=== PATIENT | male | born 1950 | race Caucasian/White ===

== ENCOUNTER 2019-04-24 11:23 | Inpatient (IN) | payer MEDICARE ==
[~2019-04-24] VITALS: Ht 175.3 cm; Wt 108.9 kg
[~2019-04-24 11:23] MED LIST: ALFU10TA PO; ASPI-650 PO; ASPI325T17 PO; ASPI325T80 PO; ATOR40TA78 PO; CELE200C PO; HYDR1TAB14 PO; ISOS20TA3 PO; METO200T47 PO; NITR0.4T41 SL; OMEP20TA62 PO; SODIUM CHLORIDE 0.9% 1,000 ML IV SCH
--- NOTE | 2019-04-24 11:29 | NUR ---
PT JAQUELIN ASH, BROUGHT FROM [place]. PT STATES " I WAS SHORT OF BREATH AND UP ALL NIGHT BECAUSE OF MY LACK OF BREATHING". PT TO SIL, FINISH MOLDER, NIBP, CONT PULSE OX APPLIED. PT DENIES CP, SOB RELIVED VIA 4L NC. NO C/O N/V. MD SALES AT BEDSIDE, EKG DONE. NO EVIDENCE OF DISTRESS AT THIS TIME
[2019-04-24 12:30] LABS: TROPONIN I 0.147 ng/mL (0.000-0.045)
--- NOTE | 2019-04-24 12:46 | NUR ---
PT RESTING IN GURNEY, NO C/O OF PAIN. NO EVIDENCE OF DISTRESS, TROP LEVEL CAME BACK 0.147, DR HERNANDEZ AWARE. WILL BEGIN HEPARIN GTT PER PROTOCOL
[2019-04-24] MEDS ORDERED: FINA5TAB4 PO (13:00)
[2019-04-24] MEDS ORDERED: HEPARIN 25,000 UNITS/500ML PMX 500 ML IV PRN (13:00)
[2019-04-24] MEDS ORDERED: HEPARIN 5,000 UNITS/ML, 1ML IV ONE (13:00)
[2019-04-24] MEDS ORDERED: FAMO10TA77 PO (13:00)
[2019-04-24] MEDS ORDERED: HEPARIN 25,000 UNITS/500ML PMX 500 ML ONE (13:02)
[2019-04-24] MEDS ORDERED: HEPARIN 5,000 UNITS/ML, 1ML ONE (13:02)
--- NOTE | 2019-04-24 13:36 | NUR ---
PT RESTING ON GURNEY. PT GIVEN WARM BLANKET. PLUGGER BEDSIDE. FAMILY BEDSIDE. NO NEEDS REQUESTED AT THIS TIME.
--- NOTE | 2019-04-24 14:38 | NUR ---
PT RESTING ON GURNEY, AT BEDSIDE. PT CONTINUES TO DENY PAIN. NO EVIDENCE OF DISTRESS, WILL CONTINUE TO MONITOR.
--- NOTE | 2019-04-24 15:36 | NUR ---
PT RESTING ON GURNEY. NO ACUTE DISTRESS NOTED. FAMILY BEDSIDE. NO NEEDS REQUESTED AT THIS TIME.
--- NOTE | 2019-04-24 16:11 | NUR ---
REPORT CALLED TO [facility]. AWAITING TRANSPORT.
--- NOTE | 2019-04-24 16:29 | NUR ---
PT TRANSFERRED TO FLOOR. PT LEFT WITH ALL PERSONAL BELONGINGS.
[2019-04-24 16:39] VITALS: BP 120/77
[2019-04-24] MEDS ORDERED: PROMETHAZINE 25 MG/ML, 1ML IM PRN (17:30)
[2019-04-24] MEDS ORDERED: ONDANSETRON 2MG/ML, 2ML IVPush PRN (17:30)
[2019-04-24] MEDS ORDERED: ONDANSETRON ODT 4 MG PO PRN (17:30)
[2019-04-24] MEDS ORDERED: BISACODYL 10 MG SUPP PR PRN (17:30)
[2019-04-24] MEDS ORDERED: hydrALAzine 20 MG/ML, 1ML IVPush PRN (17:30)
[2019-04-24] MEDS ORDERED: DOCUSATE 100 MG CAPSULE PO PRN (17:30)
[2019-04-24] MEDS ORDERED: POLYETHYLENE GLYCOL 17 GM PACKET PO PRN (17:30)
[2019-04-24] MEDS ORDERED: morphine SULFATE 10 MG/ML, 1ML IVPush PRN (17:30)
[2019-04-24 18:19] LABS: FREE T4 (FREE THYROXINE) 1.33 ng/dL (0.76-1.46); THYROID STIMULATING HORMONE 1.14 mIU/L (0.358-3.740)
[2019-04-24 19:58] VITALS: BP 118/78
[2019-04-24] MEDS: ATORVASTATIN 80 MG TABLET PO SCH (21:15)
[2019-04-24] MEDS: HEPARIN 5,000 UNITS/ML, 1ML IV PRN (21:26)
[2019-04-24 21:54] LABS: CULTURE INDICATED? YES; MICROSCOPIC INDICATED
[2019-04-25 01:19] VITALS: BP 123/77
[2019-04-25 03:32] LABS: BASOPHILS # (AUTO) 0.02 x10^3/uL (0-0.1); BASOPHILS % (AUTO) 0 % (0-1); EOSINOPHILS # (AUTO) 0.16 x10^3/uL (0-0.4); EOSINOPHILS % (AUTO) 2 % (1-7); LYMPHOCYTES # (AUTO) 1.45 x10^3/uL (1-3.4); LYMPHOCYTES % (AUTO) 20 % (22-44); MD NO; MEAN CORPUSCULAR VOLUME 90.9 fL (81-97); MEAN PLATELET VOLUME 7.7 fL (7.4-10.4); MONOCYTES # (AUTO) 0.51 x10^3/uL (0.2-0.8); MONOCYTES % (AUTO) 7 % (2-9); NEUTROPHILS # (AUTO) 5.01 x10^3/uL (1.8-6.8); NEUTROPHILS % (AUTO) 70 % (42-75); PLATELET COUNT 273 x10^3/uL (130-400); RED BLOOD COUNT 4.93 x10^6/uL (4.38-5.82); RED CELL DISTRIBUTION WIDTH 12.8 % (9.4-14.8)
[2019-04-25 03:37] LABS: ALBUMIN 2.7 g/dL (3.4-5.0); ANION GAP 8 mmol/L (5-15); CALCIUM 8.3 mg/dL (8.5-10.1); CHLORIDE 111 mmol/L (98-107)
[2019-04-25 03:40] LABS: ALANINE AMINOTRANSFERASE 40 U/L (12-78); ALKALINE PHOSPHATASE 107 U/L (45-117); BILIRUBIN,TOTAL 0.6 mg/dL (0.2-1.0); CREATININE 1.25 mg/dL (0.7-1.3); TOTAL PROTEIN 6.6 g/dL (6.4-8.2)
[2019-04-25] MEDS: HEPARIN 5,000 UNITS/ML, 1ML IV PRN ×2 (03:47→10:47)
[2019-04-25] MEDS: CEFTRIAXONE PMX 1GM/50ML 50 ML IV SCH (04:15)
[2019-04-25 05:21] VITALS: BP 122/83
[2019-04-25] MEDS: METOPROLOL SUCCINATE 25 MG TAB.ER.24H PO SCH (05:22)
[2019-04-25] MEDS: ASPIRIN 325 MG TABLET PO SCH (05:22)
[2019-04-25 07:00] VITALS: BP 133/90
[2019-04-25] MEDS: ISOSORBIDE MONONITRATE 20 MG TABLET PO SCH (08:30)
[2019-04-25] MEDS: FINASTERIDE 5 MG TABLET PO SCH (08:30)
[2019-04-25] MEDS: FAMOTIDINE 20 MG TABLET PO SCH (08:30)
[2019-04-25] MEDS: TEMPLATE NON-FORMULARY MED. (Alfuzosin Hcl** (Uroxatral**) 10 MG) PO SCH (08:32)
[2019-04-25] MEDS ORDERED: MIDAZOLAM 1 MG/ML, 5ML ONE (11:32)
[2019-04-25] MEDS ORDERED: LIDOCAINE 1%, 20ML ONE (11:32)
[2019-04-25] MEDS ORDERED: FENTANYL PF 100 MCG/2ML ONE (11:32)
[2019-04-25] MEDS ORDERED: BIVALIRUDIN 250 MG ONE (11:32)
[2019-04-25] MEDS ORDERED: SODIUM CHLORIDE 0.9% 1,000 ML IV SCH (12:13)
[2019-04-25 12:29] VITALS: BP 113/70
[2019-04-25] MEDS: ATORVASTATIN 80 MG TABLET PO SCH (20:01)
[2019-04-25 21:27] VITALS: BP 134/78
[2019-04-26 02:20] VITALS: BP 126/77
[2019-04-26] MEDS: CEFTRIAXONE PMX 1GM/50ML 50 ML IV SCH (04:46)
[2019-04-26 05:32] LABS: BASOPHILS # (AUTO) 0.03 x10^3/uL (0-0.1); BASOPHILS % (AUTO) 0 % (0-1); EOSINOPHILS # (AUTO) 0.16 x10^3/uL (0-0.4); EOSINOPHILS % (AUTO) 2 % (1-7); LYMPHOCYTES # (AUTO) 1.43 x10^3/uL (1-3.4); LYMPHOCYTES % (AUTO) 19 % (22-44); MD NO; MEAN CORPUSCULAR HEMOGLOBIN 29.6 pg (27.5-34.5); MEAN CORPUSCULAR HGB CONC 32.4 g/dL (33.2-36.2); MEAN CORPUSCULAR VOLUME 91.1 fL (81-97); MEAN PLATELET VOLUME 7.3 fL (7.4-10.4); MONOCYTES # (AUTO) 0.64 x10^3/uL (0.2-0.8); MONOCYTES % (AUTO) 8 % (2-9); NEUTROPHILS % (AUTO) 70 % (42-75); PLATELET COUNT 258 x10^3/uL (130-400); RED BLOOD COUNT 4.84 x10^6/uL (4.38-5.82); RED CELL DISTRIBUTION WIDTH 12.4 % (9.4-14.8)
[2019-04-26 05:36] VITALS: BP 105/62
[2019-04-26] MEDS: METOPROLOL SUCCINATE 25 MG TAB.ER.24H PO SCH (05:37)
[2019-04-26] MEDS: ASPIRIN 325 MG TABLET PO SCH (05:37)
[2019-04-26 05:43] LABS: ANION GAP 5 mmol/L (5-15); CALCIUM 8.3 mg/dL (8.5-10.1); CHLORIDE 108 mmol/L (98-107)
[2019-04-26 05:51] LABS: CREATININE 1.35 mg/dL (0.7-1.3)
[2019-04-26 07:05] VITALS: BP 126/82
[2019-04-26] MEDS: FINASTERIDE 5 MG TABLET PO SCH (08:30)
[2019-04-26] MEDS: FAMOTIDINE 20 MG TABLET PO SCH (08:31)
[2019-04-26] MEDS: ISOSORBIDE MONONITRATE 20 MG TABLET PO SCH (08:31)
[2019-04-26] MEDS: TEMPLATE NON-FORMULARY MED. (Alfuzosin Hcl** (Uroxatral**) 10 MG) PO SCH (08:35)
[2019-04-26] MEDS ORDERED: SODIUM CHLORIDE 0.9% 1,000ML IVBOLUS ONE (11:30)
[2019-04-26 15:45] VITALS: BP 112/75
[2019-04-26] MEDS ORDERED: OMNIPAQUE 350 MG/ML, 100ML BOTTLE ONE (16:38)
[2019-04-26] MEDS ORDERED: HEPARIN 25,000 UNITS/500ML PMX 500 ML IV PRN (17:00)
[2019-04-26] MEDS ORDERED: HEPARIN 5,000 UNITS/ML, 1ML IV PRN (17:00)
[2019-04-26] MEDS ORDERED: HEPARIN 5,000 UNITS/ML, 1ML IV ONE (17:00)
[2019-04-26] MEDS ORDERED: FENTANYL PF 100 MCG/2ML ONE (18:11)
[2019-04-26] MEDS ORDERED: LIDOCAINE-MPF 1%, 5ML ONE (18:11)
[2019-04-26] MEDS ORDERED: SODIUM CHLORIDE 0.9% IV ONE ×3 (19:00→22:00)
[2019-04-26] MEDS ORDERED: ALTEPLASE IV ONE ×3 (19:00→22:00)
[2019-04-26] MEDS: ATORVASTATIN 80 MG TABLET PO SCH (21:00)
[2019-04-26] MEDS: ACETAMINOPHEN 325 MG TABLET PO PRN (21:00)
[2019-04-27 04:00] VITALS: BP 151/76
[2019-04-27] MEDS: ACETAMINOPHEN 325 MG TABLET PO PRN (04:37)
[2019-04-27] MEDS: CEFTRIAXONE PMX 1GM/50ML 50 ML IV SCH (05:03)
[2019-04-27] MEDS: ASPIRIN 325 MG TABLET PO SCH (05:09)
[2019-04-27] MEDS: METOPROLOL SUCCINATE 25 MG TAB.ER.24H PO SCH (05:09)
[2019-04-27] MEDS: ALTEPLASE IV PRN ×2 (06:03→12:12)
[2019-04-27] MEDS: SODIUM CHLORIDE 0.9% IV PRN ×2 (06:03→12:12)
[2019-04-27] MEDS: OXYcodone IR 5MG TABLET PO PRN ×4 (07:37→21:52)
[2019-04-27 08:47] LABS: BASOPHILS # (AUTO) 0.02 x10^3/uL (0-0.1); BASOPHILS % (AUTO) 0 % (0-1); EOSINOPHILS % (AUTO) 1 % (1-7); LYMPHOCYTES # (AUTO) 1.07 x10^3/uL (1-3.4); LYMPHOCYTES % (AUTO) 14 % (22-44); MD NO; MEAN CORPUSCULAR HEMOGLOBIN 29.5 pg (27.5-34.5); MEAN CORPUSCULAR HGB CONC 33.1 g/dL (33.2-36.2); MEAN CORPUSCULAR VOLUME 89.1 fL (81-97); MEAN PLATELET VOLUME 7.3 fL (7.4-10.4); MONOCYTES # (AUTO) 0.54 x10^3/uL (0.2-0.8); MONOCYTES % (AUTO) 7 % (2-9); NEUTROPHILS # (AUTO) 6.14 x10^3/uL (1.8-6.8); NEUTROPHILS % (AUTO) 78 % (42-75); PLATELET COUNT 181 x10^3/uL (130-400); RED BLOOD COUNT 5.05 x10^6/uL (4.38-5.82); RED CELL DISTRIBUTION WIDTH 12.8 % (9.4-14.8)
[2019-04-27 08:52] LABS: ALBUMIN 2.7 g/dL (3.4-5.0); ANION GAP 5 mmol/L (5-15); CALCIUM 8.1 mg/dL (8.5-10.1); CHLORIDE 109 mmol/L (98-107)
[2019-04-27 08:59] LABS: ALANINE AMINOTRANSFERASE 42 U/L (12-78); ALKALINE PHOSPHATASE 109 U/L (45-117); BILIRUBIN,TOTAL 0.8 mg/dL (0.2-1.0); CREATINE KINASE, TOTAL 84 U/L (39-308); CREATININE 1.08 mg/dL (0.7-1.3); TOTAL PROTEIN 6.5 g/dL (6.4-8.2)
[2019-04-27] MEDS: TEMPLATE NON-FORMULARY MED. (Alfuzosin Hcl** (Uroxatral**) 10 MG) PO SCH (09:00)
[2019-04-27] MEDS: FAMOTIDINE 20 MG TABLET PO SCH (09:00)
[2019-04-27] MEDS: FINASTERIDE 5 MG TABLET PO SCH (09:00)
[2019-04-27] MEDS: ISOSORBIDE MONONITRATE ER 30 MG TABLET PO SCH (09:00)
[2019-04-27] MEDS ORDERED: OMNIPAQUE 350 MG/ML, 100ML BOTTLE ONE (14:31)
[2019-04-27] MEDS ORDERED: LIDOCAINE-MPF 1%, 5ML ONE (15:33)
[2019-04-27] MEDS ORDERED: FENTANYL PF 100 MCG/2ML ONE (15:44)
[2019-04-27] MEDS ORDERED: VISIPAQUE 320MG/ML, 50ML BOTTLE ONE (16:49)
[2019-04-27] MEDS: ATORVASTATIN 80 MG TABLET PO SCH (21:52)
[2019-04-27] MEDS ORDERED: HEPARIN wt. based STROKE protocol MC SCH (22:30)
[2019-04-27] MEDS ORDERED: HEPARIN 25,000 UNITS/500ML PMX 500 ML IV PRN (22:30)
[2019-04-28 04:00] VITALS: BP 111/71
[2019-04-28] MEDS: CEFTRIAXONE PMX 1GM/50ML 50 ML IV SCH (04:11)
[2019-04-28 05:28] LABS: BASOPHILS # (AUTO) 0.02 x10^3/uL (0-0.1); BASOPHILS % (AUTO) 0 % (0-1); EOSINOPHILS # (AUTO) 0.17 x10^3/uL (0-0.4); EOSINOPHILS % (AUTO) 2 % (1-7); LYMPHOCYTES # (AUTO) 1.37 x10^3/uL (1-3.4); LYMPHOCYTES % (AUTO) 16 % (22-44); MD NO; MEAN CORPUSCULAR HEMOGLOBIN 30.2 pg (27.5-34.5); MEAN CORPUSCULAR HGB CONC 32.8 g/dL (33.2-36.2); MEAN CORPUSCULAR VOLUME 91.9 fL (81-97); MEAN PLATELET VOLUME 8.4 fL (7.4-10.4); MONOCYTES # (AUTO) 0.84 x10^3/uL (0.2-0.8); MONOCYTES % (AUTO) 10 % (2-9); NEUTROPHILS # (AUTO) 6.17 x10^3/uL (1.8-6.8); NEUTROPHILS % (AUTO) 72 % (42-75); PLATELET COUNT 168 x10^3/uL (130-400); RED BLOOD COUNT 4.41 x10^6/uL (4.38-5.82); RED CELL DISTRIBUTION WIDTH 12.9 % (9.4-14.8)
[2019-04-28 05:50] LABS: ALBUMIN 2.6 g/dL (3.4-5.0); ANION GAP 6 mmol/L (5-15); CALCIUM 8.2 mg/dL (8.5-10.1); CHLORIDE 107 mmol/L (98-107)
[2019-04-28] MEDS: ASPIRIN 325 MG TABLET PO SCH (05:52)
[2019-04-28] MEDS: METOPROLOL SUCCINATE 25 MG TAB.ER.24H PO SCH (05:53)
[2019-04-28 05:54] LABS: CREATININE 1.14 mg/dL (0.7-1.3)
[2019-04-28 05:55] LABS: ALANINE AMINOTRANSFERASE 34 U/L (12-78); ALKALINE PHOSPHATASE 100 U/L (45-117); BILIRUBIN,TOTAL 0.6 mg/dL (0.2-1.0); TOTAL PROTEIN 6.2 g/dL (6.4-8.2)
[2019-04-28] MEDS: TEMPLATE NON-FORMULARY MED. (Alfuzosin Hcl** (Uroxatral**) 10 MG) PO SCH (09:00)
[2019-04-28] MEDS: ISOSORBIDE MONONITRATE ER 30 MG TABLET PO SCH (09:50)
[2019-04-28] MEDS: FAMOTIDINE 20 MG TABLET PO SCH (09:50)
[2019-04-28] MEDS: FINASTERIDE 5 MG TABLET PO SCH (09:50)
[2019-04-28] MEDS: OXYcodone IR 5MG TABLET PO PRN (16:34)
[2019-04-28] MEDS: ENOXAPARIN 100 MG/ML SQ SCH (17:46)
[2019-04-28] MEDS: ATORVASTATIN 80 MG TABLET PO SCH (20:34)
[2019-04-29 04:00] VITALS: BP 120/64
[2019-04-29 04:31] LABS: BASOPHILS # (AUTO) 0.02 x10^3/uL (0-0.1); BASOPHILS % (AUTO) 0 % (0-1); EOSINOPHILS # (AUTO) 0.21 x10^3/uL (0-0.4); EOSINOPHILS % (AUTO) 4 % (1-7); LYMPHOCYTES # (AUTO) 1.25 x10^3/uL (1-3.4); LYMPHOCYTES % (AUTO) 21 % (22-44); MD NO; MEAN CORPUSCULAR HEMOGLOBIN 29.5 pg (27.5-34.5); MEAN CORPUSCULAR HGB CONC 32.7 g/dL (33.2-36.2); MEAN CORPUSCULAR VOLUME 90.1 fL (81-97); MEAN PLATELET VOLUME 7.6 fL (7.4-10.4); MONOCYTES # (AUTO) 0.63 x10^3/uL (0.2-0.8); MONOCYTES % (AUTO) 11 % (2-9); NEUTROPHILS % (AUTO) 64 % (42-75); PLATELET COUNT 223 x10^3/uL (130-400); RED BLOOD COUNT 4.15 x10^6/uL (4.38-5.82); RED CELL DISTRIBUTION WIDTH 13.4 % (9.4-14.8)
[2019-04-29 04:32] LABS: ANION GAP 5 mmol/L (5-15); CHLORIDE 105 mmol/L (98-107); CREATININE 1.09 mg/dL (0.7-1.3)
[2019-04-29] MEDS: METOPROLOL SUCCINATE 25 MG TAB.ER.24H PO SCH (05:46)
[2019-04-29] MEDS: ENOXAPARIN 100 MG/ML SQ SCH (05:46)
[2019-04-29] MEDS: CEFTRIAXONE PMX 1GM/50ML 50 ML IV SCH (05:46)
[2019-04-29] MEDS: ASPIRIN 325 MG TABLET PO SCH (05:46)
[2019-04-29] MEDS: ISOSORBIDE MONONITRATE ER 30 MG TABLET PO SCH (08:24)
[2019-04-29] MEDS: FAMOTIDINE 20 MG TABLET PO SCH (08:25)
[2019-04-29] MEDS: FINASTERIDE 5 MG TABLET PO SCH (09:01)
[2019-04-29] MEDS: TEMPLATE NON-FORMULARY MED. (Alfuzosin Hcl** (Uroxatral**) 10 MG) PO SCH ×2 (09:20→11:31)
[2019-04-29] MEDS: OXYcodone IR 5MG TABLET PO PRN (11:07)
[2019-04-29 12:42] VITALS: BP 132/75
[2019-04-29] MEDS: RIVAROXABAN 15 MG TABLET PO SCH (17:25)
[2019-04-29] MEDS: ATORVASTATIN 80 MG TABLET PO SCH (20:12)
[2019-04-29 21:02] VITALS: BP 114/69
[2019-04-30 00:58] VITALS: BP 121/72
[2019-04-30] MEDS: METOPROLOL SUCCINATE 25 MG TAB.ER.24H PO SCH (05:34)
[2019-04-30] MEDS: ASPIRIN 325 MG TABLET PO SCH (05:34)
[2019-04-30 07:19] VITALS: BP 115/76
[2019-04-30] MEDS: FINASTERIDE 5 MG TABLET PO SCH (08:33)
[2019-04-30] MEDS: RIVAROXABAN 15 MG TABLET PO SCH ×2 (08:33→17:19)
[2019-04-30] MEDS: ISOSORBIDE MONONITRATE ER 30 MG TABLET PO SCH (08:34)
[2019-04-30] MEDS: FAMOTIDINE 20 MG TABLET PO SCH (08:34)
[2019-04-30] MEDS: TEMPLATE NON-FORMULARY MED. (Alfuzosin Hcl** (Uroxatral**) 10 MG) PO SCH (08:35)
[2019-04-30 12:53] VITALS: BP 118/64
[2019-04-30 18:50] VITALS: BP 118/72
[2019-04-30] MEDS: ATORVASTATIN 80 MG TABLET PO SCH (20:35)
[2019-05-01 01:45] VITALS: BP 120/73
[2019-05-01 07:33] VITALS: BP 120/74
[2019-05-01] MEDS ORDERED: LIDOCAINE-MPF 1%, 5ML ONE (07:49)
[2019-05-01] MEDS ORDERED: NALOXONE 1 MG/ML, 2ML ONE (08:01)
[2019-05-01] MEDS ORDERED: MIDAZOLAM 1 MG/ML, 5ML ONE (08:01)
[2019-05-01] MEDS ORDERED: FENTANYL PF 100 MCG/2ML ONE ×2 (08:01)
[2019-05-01] MEDS ORDERED: FLUMAZENIL 0.1 MG/1 ML, 5ML ONE (08:01)
[2019-05-01] MEDS: TEMPLATE NON-FORMULARY MED. (Alfuzosin Hcl** (Uroxatral**) 10 MG) PO SCH (09:00)
[2019-05-01] MEDS ORDERED: VISIPAQUE 270 MG/ML, 50ML BOTTLE ONE (09:21)
[2019-05-01] MEDS: RIVAROXABAN 15 MG TABLET PO SCH ×2 (10:27→17:42)
[2019-05-01] MEDS: ISOSORBIDE MONONITRATE ER 30 MG TABLET PO SCH (10:27)
[2019-05-01] MEDS: METOPROLOL SUCCINATE 25 MG TAB.ER.24H PO SCH (10:27)
[2019-05-01] MEDS: FAMOTIDINE 20 MG TABLET PO SCH (10:27)
[2019-05-01] MEDS: ASPIRIN 325 MG TABLET PO SCH (10:27)
[2019-05-01] MEDS: FINASTERIDE 5 MG TABLET PO SCH (10:27)
[2019-05-01 19:51] VITALS: BP 121/72
[2019-05-01] MEDS: ATORVASTATIN 80 MG TABLET PO SCH (20:45)
[2019-05-02 00:48] VITALS: BP 116/70
[2019-05-02] MEDS: METOPROLOL SUCCINATE 25 MG TAB.ER.24H PO SCH (05:28)
[2019-05-02] MEDS: ASPIRIN 325 MG TABLET PO SCH (05:28)
[2019-05-02 05:43] LABS: BASOPHILS # (AUTO) 0.03 x10^3/uL (0-0.1); BASOPHILS % (AUTO) 0 % (0-1); EOSINOPHILS # (AUTO) 0.18 x10^3/uL (0-0.4); EOSINOPHILS % (AUTO) 2 % (1-7); LYMPHOCYTES # (AUTO) 1.53 x10^3/uL (1-3.4); LYMPHOCYTES % (AUTO) 21 % (22-44); MD NO; MEAN CORPUSCULAR HEMOGLOBIN 29.8 pg (27.5-34.5); MEAN CORPUSCULAR HGB CONC 32.7 g/dL (33.2-36.2); MEAN CORPUSCULAR VOLUME 91.1 fL (81-97); MEAN PLATELET VOLUME 7.6 fL (7.4-10.4); MONOCYTES # (AUTO) 0.68 x10^3/uL (0.2-0.8); MONOCYTES % (AUTO) 9 % (2-9); NEUTROPHILS # (AUTO) 4.94 x10^3/uL (1.8-6.8); NEUTROPHILS % (AUTO) 67 % (42-75); PLATELET COUNT 383 x10^3/uL (130-400); RED BLOOD COUNT 4.25 x10^6/uL (4.38-5.82); RED CELL DISTRIBUTION WIDTH 13.3 % (9.4-14.8)
[2019-05-02 08:08] VITALS: BP 109/69
[2019-05-02] MEDS: TEMPLATE NON-FORMULARY MED. (Alfuzosin Hcl** (Uroxatral**) 10 MG) PO SCH (09:00)
[2019-05-02] MEDS: FINASTERIDE 5 MG TABLET PO SCH (09:04)
[2019-05-02] MEDS: RIVAROXABAN 15 MG TABLET PO SCH (09:04)
[2019-05-02] MEDS: ISOSORBIDE MONONITRATE ER 30 MG TABLET PO SCH (09:05)
[2019-05-02] MEDS: FAMOTIDINE 20 MG TABLET PO SCH (09:05)
[2019-05-02] MEDS ORDERED: RIVA20TA PO (09:54)
[2019-05-02] MEDS ORDERED: RIVA15TA PO (09:54)
[2019-05-02] MEDS ORDERED: PANT40TA3 PO (10:11)
== END 2019-05-02 11:12 | disposition home or self-care (01) | DRG 252 ==
LOC: ED 12:03 → EDIP 12:04 → ED 12:12 → 5SO 16:42 → CCU 04-26 19:11 → ICU 04-29 11:21 → CCU 04-29 12:24 → 5SO 04-29 12:33 → DCLOUNGE 05-02 11:03
PROVIDERS: ADMIT Internal Medicine; ATTEND Internal Medicine
PROC: 4A023N7 Measurement of Cardiac Sampling and Pressure, Left Heart, Percutaneous Approach (ICD-10-PCS; 2019-04-25)
PROC: B2111ZZ Fluoroscopy of Multiple Coronary Arteries using Low Osmolar Contrast (ICD-10-PCS; 2019-04-25)
PROC: B2181ZZ Fluoroscopy of Left Internal Mammary Bypass Graft using Low Osmolar Contrast (ICD-10-PCS; 2019-04-25)
PROC: B21F1ZZ Fluoroscopy of Other Bypass Graft using Low Osmolar Contrast (ICD-10-PCS; 2019-04-25)
PROC: 6A750Z7 Ultrasound Therapy of Other Vessels, Single (ICD-10-PCS; 2019-04-26)
PROC: 3E06317 Introduction of Other Thrombolytic into Central Artery, Percutaneous Approach (ICD-10-PCS; 2019-04-26)
PROC: 06H03DZ Insertion of Intraluminal Device into Inferior Vena Cava, Percutaneous Approach (ICD-10-PCS; principal; 2019-04-27)
PROC: 06PY3DZ Removal of Intraluminal Device from Lower Vein, Percutaneous Approach (ICD-10-PCS; 2019-05-01)
DX: I21.4 Non-ST elevation (NSTEMI) myocardial infarction (principal); J96.01 Acute respiratory failure with hypoxia; I26.92 Saddle embolus of pulmonary artery without acute cor pulmonale; D68.59 Other primary thrombophilia; E44.0 Moderate protein-calorie malnutrition; N39.0 Urinary tract infection, site not specified; I82.431 Acute embolism and thrombosis of right popliteal vein; I82.441 Acute embolism and thrombosis of right tibial vein; I25.110 Atherosclerotic heart disease of native coronary artery with unstable angina pectoris; B96.20 Unspecified Escherichia coli [E. coli] as the cause of diseases classified elsewhere; Z68.35 Body mass index [BMI] 35.0-35.9, adult; E66.9 Obesity, unspecified; E78.5 Hyperlipidemia, unspecified; G89.29 Other chronic pain; M54.9 Dorsalgia, unspecified; I10 Essential (primary) hypertension; I27.20 Pulmonary hypertension, unspecified; M81.0 Age-related osteoporosis without current pathological fracture; N40.1 Benign prostatic hyperplasia with lower urinary tract symptoms; R33.8 Other retention of urine; Z72.0 Tobacco use; Z79.82 Long term (current) use of aspirin; Z95.1 Presence of aortocoronary bypass graft; Z95.828 Presence of other vascular implants and grafts; Z96.651 Presence of right artificial knee joint
CPT/HCPCS: 36415; 37191; 37193; 37213; 71045; 71046; 71275; 76937; 80048; 80053; 81001; 82550; 83735; 83880; 84100; 84439; 84443; 84484; 85025; 85384; 85520; 87040; 87077; 87081; 87086; 87186; 93005; 93306; 93459; 93970; 99156; 99157; 99285; C1760; C1880; C1894; G0378; J0583; J0696; J1644; J1650; J2250; J2997; J3010; Q9966; Q9967; C1751; C1769; C1773; J2270; J2310; J7030

== ENCOUNTER → 2021-06-02 | Outpatient (CLI) | payer MEDICARE ==
[~2021-06-02] MED LIST changes: +ASPI-1026 PO; -ASPI-650 PO; +FAMO-185 PO; +FINA5TAB4 PO; -HYDR1TAB14 PO; +HYDR1TAB15 PO; +ISOS20TA10 PO; -ISOS20TA3 PO; +PANT40TA3 PO; +REGADENOSON 0.4 MG/5 ML SYRINGE ONE; +RIVA15TA PO; +RIVA20TA PO; -SODIUM CHLORIDE 0.9% 1,000 ML IV SCH
== END | disposition home or self-care (01) ==
LOC: CFH 07:15
PROVIDERS: ATTEND Internal Medicine Cardiovascular Disease
DX: I06.1 Rheumatic aortic insufficiency (principal); I25.2 Old myocardial infarction; I10 Essential (primary) hypertension; I25.810 Atherosclerosis of coronary artery bypass graft(s) without angina pectoris; Z95.1 Presence of aortocoronary bypass graft
CPT/HCPCS: 78452; 93017; 93306; 93356; A9502; J2785